=== PATIENT | female | born 1960 | race Caucasian/White ===

== ENCOUNTER 2020-10-05 09:25 | Outpatient (CLI) | payer BC, SELFPAY ==
--- NOTE | ~2020-10-05 | XR_ITS ---
EXAMINATION: XR hand RT min 3V DATE: 10/05/2020 09:41 INDICATION: Right hand pain. TECHNIQUE: 3 views of right hand were obtained. COMPARISON: None. FINDINGS: Bone alignment is normal. No fracture. There is mild osteoarthritis of first and second met acarpophalangeal joints, first interphalangeal joint, and second and fourth distal interphalangeal ale ints. There is severe osteoarthritis of fifth distal interphalangeal joint. IMPRESSION: 1. Polyarticular osteoarthritis. Reviewed, dictated and finalized at location B. [employer]
== END 2020-10-05 09:26 | disposition home or self-care (01) ==
LOC: CHSIMG 09:29
PROVIDERS: PCP Family Medicine; Visit Provider Orthopaedic Surgery
DX: M79.641 Pain in right hand (principal)
CPT/HCPCS: 73130

== ENCOUNTER 2022-08-21 12:31 | Outpatient (CLI) | payer BC, SELFPAY ==
[2022-08-21 13:51] LABS: SARS-CoV-2 RNA PCR Negative (Negative)
== END 2022-08-21 12:32 | disposition home or self-care (01) ==
LOC: CHSLAB 12:39
PROVIDERS: PCP Family Medicine
DX: Z01.818 Encounter for other preprocedural examination (principal); Z20.822 Contact with and (suspected) exposure to COVID-19
CPT/HCPCS: C9803; U0003; U0005

== ENCOUNTER 2024-08-01 08:50 | Outpatient (CLI) | payer BC, SELFPAY ==
--- NOTE | ~2024-08-01 | XR_ITS ---
Right wrist Technique: PA, oblique, lateral, and ulnar deviation views were obtained. Clinical History: Pain Findings: No acute fracture or dislocation is seen. Osseous alignment is anatomic. Joint spaces are p reserved. Soft tissues are unremarkable. Impression: Unremarkable right wrist radiographs. Reviewed, dictated and finalized at location . Impression: Unremarkable right wrist radiographs.
--- NOTE | ~2024-08-01 | XR_ITS ---
Right Hand Technique: PA, oblique, and lateral views were obtained. Clinical History: Pain Findings: No acute fracture or dislocation is seen. Osseous alignment is anatomic. There is mild to m oderate degenerative change of the fifth DIP joint. Soft tissues are unremarkable. Impression: Degenerative change of the fifth DIP joint. No acute abnormality seen. Reviewed, dictated and finalized at location . Impression: Degenerative change of the fifth DIP joint. No acute abnormality seen.
== END 2024-08-01 08:51 | disposition home or self-care (01) ==
PROVIDERS: PCP Family Medicine; Visit Provider Orthopaedic Surgery Hand Surgery
DX: M79.641 Pain in right hand (principal); M25.531 Pain in right wrist
CPT/HCPCS: 73110; 73130